=== PATIENT | female | born 1940 | race Caucasian/White ===

== ENCOUNTER 2016-12-25 16:27 | Emergency (ER) | payer MEDICARE, OTHER ==
[~2016-12-25 16:27] MED LIST: CALCIUM600 MG PO; CIPRO DPS500 MG PO; CLARITIN DPS10 MG PO; CLARITIN10 M2 PO; DECADRON-DPS4 MG PO; HYDROCODONE 5MG/5 MG PO; LIPITOR DPS20 MG PO; LOPRESSOR DPS50 MG PO; MAALOX DPS30 ML PO; MEGACE DPS800 MG/20 PO; METAMUCIL0.52 GM PO; MOTRIN IB200 MG PO; ONE DAILY1 EACH PO; PEPCID DPS20 MG PO; RISPERDAL2 MG PO; SURFAK DPS240 MG PO; TYLENOL EXTRA500 M1 OP; VITAMIN D31000 UNIT PO; XARELTO20 MG PO; ZOFRAN4 MG PO; ZOLOFT DPS100 MG PO
--- NOTE | 2016-12-27 16:08 | ER ---
ADMIT: 12/25/2016 RM/LOC: ER [facility] MR#: [id number] [address] [address] [address] [place] [address] Emergency Room Report SEX: F AGE: 76 : 1940 DATE: 12/25/2016 TIME: 1627 hours. Please refer to my T-sheet for complete H and P. HISTORY OF PRESENT ILLNESS: Briefly, the patient is a 76-year-old, who comes in with shortness of breath. She feels like the fluid has rebuilt up in her chest. She has a known history of colon cancer, on chemotherapy. She has had thoracentesis done x2, the last was 2 weeks ago. She denies any fever. No chest pain. She does feel short of breath, worse when she lays flat. PHYSICAL EXAMINATION: VITAL SIGNS: Her blood pressure is 137/73, pulse 125, respirations 32, temp 98.4, saturating 93%. GENERAL: She is in no acute distress. HEENT: Head is atraumatic, normocephalic. Pupils are equal and reactive to light. Extraocular muscles intact. TMs clear. Throat clear. NECK: Soft, supple. LUNGS: Decreased breath sounds on the right. ABDOMEN: Soft. SKIN: No rash. EMERGENCY DEPARTMENT COURSE: We did a CBC. It was normal except white count 12.3, hemoglobin 9.8, which are somewhat stable for her. Chemistries normal except potassium 3.4, BUN 37, glucose 105, creatinine 1.2, mag was 2. Coags are normal. Chest x-ray revealed large right pleural effusion. We gave her a DuoNeb which seemed to help while here. She has them at home. I talked to Dr. Severino, who is on-call for Dr. Jensen. With her oxygen sats being 95%, she is very comfortable. The patient is comfortable with going home and still being on Xarelto today. We would like to hold the Xarelto tonight and tomorrow morning and get the thoracentesis done as an outpatient. The family ADMIT: 12/25/2016 RM/LOC: [facility] MR#: [id number] [address] [address] [address] [facility] [place] [address] Emergency Room Report SEX: F AGE: 76 : 1940 was comfortable with this. The patient was comfortable with this. Dr. Severino was on board with this. We will try to coordinate that with Interventional Radiology. ASSESSMENT: 1. Right pleural effusion reaccumulation. 2. Dyspnea secondary to #1. 3. Oncology patient. PLAN: Hold Xarelto tonight and tomorrow morning. Interventional Radiology will do a thoracentesis tomorrow when available. Return if worse. Follow up with Dr. Jensen. Basim Avalos MD/ bridget JOB #: [id number] CC: Basim Avalos MD, Attending Physician Chelo Cerda MD, Family Physician
[2017-02-15] MEDS ORDERED: LOPERAMIDE2 MG PO (14:00)
[2017-02-15] MEDS ORDERED: LOMOTIL 2.5-0.1 EACH PO (14:02)
[2017-02-15] MEDS ORDERED: CULTURELLE1 CAP PO (14:04)
[2017-02-15] MEDS ORDERED: DUONEB DPS3 ML IH (14:04)
[2017-02-15] MEDS ORDERED: MAALOX DPS30 ML PO (14:04)
[2017-02-15] MEDS ORDERED: COLACE-DPS100 MG PO (14:05)
[2017-02-15] MEDS ORDERED: DURAGESIC1 EAC1 TD (14:05)
[2017-05-04] MEDS ORDERED: MEGACE400 MG/10 PO (13:07)
[2017-05-04] MEDS ORDERED: KLOR-CON M2020 ME1 PO (13:07)
[2017-05-04] MEDS ORDERED: XARELTO20 MG PO (13:07)
[2017-05-04] MEDS ORDERED: DECADRON-DPS4 MG PO (13:08)
[2017-05-04] MEDS ORDERED: OMEPRAZOLE40 MG PO (13:08)
[2017-05-04] MEDS ORDERED: ZOFRAN4 MG PO (13:08)
[2017-05-04] MEDS ORDERED: RISPERDAL2 MG PO (13:08)
[2017-05-04] MEDS ORDERED: ZOLOFT DPS100 MG PO (13:08)
[2017-05-04] MEDS ORDERED: COMPAZINE10 MG PO (13:08)
[2017-05-04] MEDS ORDERED: PROBIOTIC1 EAC1 PO (13:09)
[2017-05-04] MEDS ORDERED: LOMOTIL-DPS1 TAB PO (13:09)
[2017-05-04] MEDS ORDERED: METAMUCIL PACK3.4 GM PO (13:09)
[2017-05-04] MEDS ORDERED: IMODIUM DPS2 MG PO (13:09)
[2017-05-04] MEDS ORDERED: PHENERGAN6.25 MG/5 PO (13:10)
[2017-05-04] MEDS ORDERED: MAALOX DPS30 ML PO (13:11)
[2017-05-04] MEDS ORDERED: K-PHOS ORIGINA500 MG PO (13:12)
[2017-05-04] MEDS ORDERED: CIPRO DPS500 MG PO (13:12)
[2017-05-04] MEDS ORDERED: REGLAN DPS5 MG PO (13:12)
[2017-05-04] MEDS ORDERED: CARAFATE DPS1 GM PO (13:12)
[2017-05-04] MEDS ORDERED: TYLENOL DPS325 MG PO (13:12)
[2017-05-19] MEDS ORDERED: MEGACE DPS800 MG/20 PO (11:59)
[2017-05-19] MEDS ORDERED: KLOR-CON M2020 ME1 PO (11:59)
[2017-05-19] MEDS ORDERED: PROTONIX40 MG PO (11:59)
[2017-05-19] MEDS ORDERED: DECADRON-DPS4 MG PO (11:59)
[2017-05-19] MEDS ORDERED: SERTRALINE HCL100 MG PO (11:59)
[2017-05-19] MEDS ORDERED: XARELTO20 MG PO (11:59)
[2017-05-19] MEDS ORDERED: RISPERDAL2 MG PO (12:00)
[2017-05-19] MEDS ORDERED: COMPAZINE10 MG PO (12:00)
[2017-05-19] MEDS ORDERED: ZOFRAN4 MG PO (12:00)
[2017-05-19] MEDS ORDERED: IMODIUM DPS2 MG PO (12:00)
[2017-05-19] MEDS ORDERED: LOMOTIL-DPS1 TAB PO (12:00)
[2017-05-19] MEDS ORDERED: PHENERGAN25 MG PR (12:01)
[2017-05-19] MEDS ORDERED: CULTURELLE1 CAP PO (12:01)
[2017-05-19] MEDS ORDERED: METAMUCIL SF P3.4 GM PO (12:01)
[2017-05-19] MEDS ORDERED: CARAFATE1 GM/10 ML PO (12:02)
[2017-05-19] MEDS ORDERED: MAALOX DPS30 ML PO (12:02)
[2017-05-19] MEDS ORDERED: REGLAN DPS5 MG PO (12:02)
[2017-05-19] MEDS ORDERED: K-PHOS NEUTRAL250 MG PO (12:02)
[2017-05-19] MEDS ORDERED: TYLENOL DPS325 MG PO (12:03)
[2017-05-19] MEDS ORDERED: CIPRO DPS500 MG PO (12:03)
[2017-07-23] MEDS ORDERED: K-PHOS NEUTRAL250 MG PO (14:26)
[2017-07-23] MEDS ORDERED: FLORINEF0.1 MG PO (14:26)
[2017-07-23] MEDS ORDERED: DELTASONE DPS20 MG PO (14:26)
[2017-07-23] MEDS ORDERED: LASIX DPS40 MG PO (14:27)
[2017-07-23] MEDS ORDERED: PEPCID DPS20 MG PO (14:28)
[2017-07-23] MEDS ORDERED: PRO-AMATINE2.5 MG PO (14:29)
[2017-07-23] MEDS ORDERED: QUESTRAN DPS4 GM PO (14:30)
[2017-07-23] MEDS ORDERED: ZOLOFT50 MG PO (14:32)
[2017-07-23] MEDS ORDERED: DUONEB DPS3 ML IH (14:32)
[2017-07-23] MEDS ORDERED: MUCOMYST 20% IH (14:33)
[2017-07-23] MEDS ORDERED: COLACE-DPS100 MG PO (14:33)
[2017-07-23] MEDS ORDERED: FLU VACCINE IM (14:33)
[2017-07-23] MEDS ORDERED: CLARITIN DPS10 MG PO (14:43)
[2017-07-23] MEDS ORDERED: OCEAN NASAL MIS45 ML NS (14:43)
== END 2016-12-25 18:45 | disposition home or self-care (01) ==
LOC: ER 16:27
DX: J90 Pleural effusion, not elsewhere classified (principal); I10 Essential (primary) hypertension; C18.9 Malignant neoplasm of colon, unspecified; Z79.899 Other long term (current) drug therapy

== ENCOUNTER 2016-12-30 07:55 | Emergency (ER) | payer MEDICARE, OTHER ==
[2017-02-15] MEDS ORDERED: LOPERAMIDE2 MG PO (14:00)
[2017-02-15] MEDS ORDERED: LOMOTIL 2.5-0.1 EACH PO (14:02)
[2017-02-15] MEDS ORDERED: MAALOX DPS30 ML PO (14:04)
[2017-02-15] MEDS ORDERED: DUONEB DPS3 ML IH (14:04)
[2017-02-15] MEDS ORDERED: CULTURELLE1 CAP PO (14:04)
[2017-02-15] MEDS ORDERED: COLACE-DPS100 MG PO (14:05)
[2017-02-15] MEDS ORDERED: DURAGESIC1 EAC1 TD (14:05)
[2017-05-04] MEDS ORDERED: XARELTO20 MG PO (13:07)
[2017-05-04] MEDS ORDERED: KLOR-CON M2020 ME1 PO (13:07)
[2017-05-04] MEDS ORDERED: MEGACE400 MG/10 PO (13:07)
[2017-05-04] MEDS ORDERED: DECADRON-DPS4 MG PO (13:08)
[2017-05-04] MEDS ORDERED: OMEPRAZOLE40 MG PO (13:08)
[2017-05-04] MEDS ORDERED: RISPERDAL2 MG PO (13:08)
[2017-05-04] MEDS ORDERED: ZOFRAN4 MG PO (13:08)
[2017-05-04] MEDS ORDERED: ZOLOFT DPS100 MG PO (13:08)
[2017-05-04] MEDS ORDERED: COMPAZINE10 MG PO (13:08)
[2017-05-04] MEDS ORDERED: METAMUCIL PACK3.4 GM PO (13:09)
[2017-05-04] MEDS ORDERED: PROBIOTIC1 EAC1 PO (13:09)
[2017-05-04] MEDS ORDERED: LOMOTIL-DPS1 TAB PO (13:09)
[2017-05-04] MEDS ORDERED: IMODIUM DPS2 MG PO (13:09)
[2017-05-04] MEDS ORDERED: PHENERGAN6.25 MG/5 PO (13:10)
[2017-05-04] MEDS ORDERED: MAALOX DPS30 ML PO (13:11)
[2017-05-04] MEDS ORDERED: TYLENOL DPS325 MG PO (13:12)
[2017-05-04] MEDS ORDERED: K-PHOS ORIGINA500 MG PO (13:12)
[2017-05-04] MEDS ORDERED: CIPRO DPS500 MG PO (13:12)
[2017-05-04] MEDS ORDERED: REGLAN DPS5 MG PO (13:12)
[2017-05-04] MEDS ORDERED: CARAFATE DPS1 GM PO (13:12)
[2017-05-19] MEDS ORDERED: MEGACE DPS800 MG/20 PO (11:59)
[2017-05-19] MEDS ORDERED: KLOR-CON M2020 ME1 PO (11:59)
[2017-05-19] MEDS ORDERED: DECADRON-DPS4 MG PO (11:59)
[2017-05-19] MEDS ORDERED: SERTRALINE HCL100 MG PO (11:59)
[2017-05-19] MEDS ORDERED: XARELTO20 MG PO (11:59)
[2017-05-19] MEDS ORDERED: PROTONIX40 MG PO (11:59)
[2017-05-19] MEDS ORDERED: LOMOTIL-DPS1 TAB PO (12:00)
[2017-05-19] MEDS ORDERED: COMPAZINE10 MG PO (12:00)
[2017-05-19] MEDS ORDERED: IMODIUM DPS2 MG PO (12:00)
[2017-05-19] MEDS ORDERED: RISPERDAL2 MG PO (12:00)
[2017-05-19] MEDS ORDERED: ZOFRAN4 MG PO (12:00)
[2017-05-19] MEDS ORDERED: METAMUCIL SF P3.4 GM PO (12:01)
[2017-05-19] MEDS ORDERED: CULTURELLE1 CAP PO (12:01)
[2017-05-19] MEDS ORDERED: PHENERGAN25 MG PR (12:01)
[2017-05-19] MEDS ORDERED: REGLAN DPS5 MG PO (12:02)
[2017-05-19] MEDS ORDERED: K-PHOS NEUTRAL250 MG PO (12:02)
[2017-05-19] MEDS ORDERED: MAALOX DPS30 ML PO (12:02)
[2017-05-19] MEDS ORDERED: CARAFATE1 GM/10 ML PO (12:02)
[2017-05-19] MEDS ORDERED: TYLENOL DPS325 MG PO (12:03)
[2017-05-19] MEDS ORDERED: CIPRO DPS500 MG PO (12:03)
[2017-07-23] MEDS ORDERED: K-PHOS NEUTRAL250 MG PO (14:26)
[2017-07-23] MEDS ORDERED: DELTASONE DPS20 MG PO (14:26)
[2017-07-23] MEDS ORDERED: FLORINEF0.1 MG PO (14:26)
[2017-07-23] MEDS ORDERED: LASIX DPS40 MG PO (14:27)
[2017-07-23] MEDS ORDERED: PEPCID DPS20 MG PO (14:28)
[2017-07-23] MEDS ORDERED: PRO-AMATINE2.5 MG PO (14:29)
[2017-07-23] MEDS ORDERED: QUESTRAN DPS4 GM PO (14:30)
[2017-07-23] MEDS ORDERED: ZOLOFT50 MG PO (14:32)
[2017-07-23] MEDS ORDERED: DUONEB DPS3 ML IH (14:32)
[2017-07-23] MEDS ORDERED: COLACE-DPS100 MG PO (14:33)
[2017-07-23] MEDS ORDERED: FLU VACCINE IM (14:33)
[2017-07-23] MEDS ORDERED: MUCOMYST 20% IH (14:33)
[2017-07-23] MEDS ORDERED: CLARITIN DPS10 MG PO (14:43)
[2017-07-23] MEDS ORDERED: OCEAN NASAL MIS45 ML NS (14:43)
== END 2016-12-30 09:45 | disposition home or self-care (01) ==
DX: J90 Pleural effusion, not elsewhere classified (principal); Z85.038 Personal history of other malignant neoplasm of large intestine; Z86.711 Personal history of pulmonary embolism; Z86.718 Personal history of other venous thrombosis and embolism; Z79.899 Other long term (current) drug therapy; Z79.01 Long term (current) use of anticoagulants

== ENCOUNTER 2017-01-01 09:25 | Day surgery (SDC) | payer MEDICARE, OTHER ==
[~2017-01-01] VITALS: Ht 162.6 cm; Wt 85.4 kg
[2017-02-15] MEDS ORDERED: LOPERAMIDE2 MG PO (14:00)
[2017-02-15] MEDS ORDERED: LOMOTIL 2.5-0.1 EACH PO (14:02)
[2017-02-15] MEDS ORDERED: CULTURELLE1 CAP PO (14:04)
[2017-02-15] MEDS ORDERED: MAALOX DPS30 ML PO (14:04)
[2017-02-15] MEDS ORDERED: DUONEB DPS3 ML IH (14:04)
[2017-02-15] MEDS ORDERED: DURAGESIC1 EAC1 TD (14:05)
[2017-02-15] MEDS ORDERED: COLACE-DPS100 MG PO (14:05)
[2017-05-04] MEDS ORDERED: XARELTO20 MG PO (13:07)
[2017-05-04] MEDS ORDERED: MEGACE400 MG/10 PO (13:07)
[2017-05-04] MEDS ORDERED: KLOR-CON M2020 ME1 PO (13:07)
[2017-05-04] MEDS ORDERED: OMEPRAZOLE40 MG PO (13:08)
[2017-05-04] MEDS ORDERED: ZOFRAN4 MG PO (13:08)
[2017-05-04] MEDS ORDERED: DECADRON-DPS4 MG PO (13:08)
[2017-05-04] MEDS ORDERED: COMPAZINE10 MG PO (13:08)
[2017-05-04] MEDS ORDERED: ZOLOFT DPS100 MG PO (13:08)
[2017-05-04] MEDS ORDERED: RISPERDAL2 MG PO (13:08)
[2017-05-04] MEDS ORDERED: LOMOTIL-DPS1 TAB PO (13:09)
[2017-05-04] MEDS ORDERED: METAMUCIL PACK3.4 GM PO (13:09)
[2017-05-04] MEDS ORDERED: PROBIOTIC1 EAC1 PO (13:09)
[2017-05-04] MEDS ORDERED: IMODIUM DPS2 MG PO (13:09)
[2017-05-04] MEDS ORDERED: PHENERGAN6.25 MG/5 PO (13:10)
[2017-05-04] MEDS ORDERED: MAALOX DPS30 ML PO (13:11)
[2017-05-04] MEDS ORDERED: TYLENOL DPS325 MG PO (13:12)
[2017-05-04] MEDS ORDERED: CIPRO DPS500 MG PO (13:12)
[2017-05-04] MEDS ORDERED: CARAFATE DPS1 GM PO (13:12)
[2017-05-04] MEDS ORDERED: K-PHOS ORIGINA500 MG PO (13:12)
[2017-05-04] MEDS ORDERED: REGLAN DPS5 MG PO (13:12)
[2017-05-19] MEDS ORDERED: MEGACE DPS800 MG/20 PO (11:59)
[2017-05-19] MEDS ORDERED: DECADRON-DPS4 MG PO (11:59)
[2017-05-19] MEDS ORDERED: XARELTO20 MG PO (11:59)
[2017-05-19] MEDS ORDERED: PROTONIX40 MG PO (11:59)
[2017-05-19] MEDS ORDERED: SERTRALINE HCL100 MG PO (11:59)
[2017-05-19] MEDS ORDERED: KLOR-CON M2020 ME1 PO (11:59)
[2017-05-19] MEDS ORDERED: RISPERDAL2 MG PO (12:00)
[2017-05-19] MEDS ORDERED: COMPAZINE10 MG PO (12:00)
[2017-05-19] MEDS ORDERED: LOMOTIL-DPS1 TAB PO (12:00)
[2017-05-19] MEDS ORDERED: IMODIUM DPS2 MG PO (12:00)
[2017-05-19] MEDS ORDERED: ZOFRAN4 MG PO (12:00)
[2017-05-19] MEDS ORDERED: CULTURELLE1 CAP PO (12:01)
[2017-05-19] MEDS ORDERED: METAMUCIL SF P3.4 GM PO (12:01)
[2017-05-19] MEDS ORDERED: PHENERGAN25 MG PR (12:01)
[2017-05-19] MEDS ORDERED: MAALOX DPS30 ML PO (12:02)
[2017-05-19] MEDS ORDERED: REGLAN DPS5 MG PO (12:02)
[2017-05-19] MEDS ORDERED: K-PHOS NEUTRAL250 MG PO (12:02)
[2017-05-19] MEDS ORDERED: CARAFATE1 GM/10 ML PO (12:02)
[2017-05-19] MEDS ORDERED: TYLENOL DPS325 MG PO (12:03)
[2017-05-19] MEDS ORDERED: CIPRO DPS500 MG PO (12:03)
[2017-07-23] MEDS ORDERED: DELTASONE DPS20 MG PO (14:26)
[2017-07-23] MEDS ORDERED: FLORINEF0.1 MG PO (14:26)
[2017-07-23] MEDS ORDERED: K-PHOS NEUTRAL250 MG PO (14:26)
[2017-07-23] MEDS ORDERED: LASIX DPS40 MG PO (14:27)
[2017-07-23] MEDS ORDERED: PEPCID DPS20 MG PO (14:28)
[2017-07-23] MEDS ORDERED: PRO-AMATINE2.5 MG PO (14:29)
[2017-07-23] MEDS ORDERED: QUESTRAN DPS4 GM PO (14:30)
[2017-07-23] MEDS ORDERED: DUONEB DPS3 ML IH (14:32)
[2017-07-23] MEDS ORDERED: ZOLOFT50 MG PO (14:32)
[2017-07-23] MEDS ORDERED: FLU VACCINE IM (14:33)
[2017-07-23] MEDS ORDERED: COLACE-DPS100 MG PO (14:33)
[2017-07-23] MEDS ORDERED: MUCOMYST 20% IH (14:33)
[2017-07-23] MEDS ORDERED: CLARITIN DPS10 MG PO (14:43)
[2017-07-23] MEDS ORDERED: OCEAN NASAL MIS45 ML NS (14:43)
== END 2017-01-01 13:55 | disposition home or self-care (01) ==
LOC: RAD.S 09:25 → EDSTATUS 01-03 09:00
PROC: 0W9930Z Drainage of Right Pleural Cavity with Drainage Device, Percutaneous Approach (ICD-10-PCS; principal; 2017-01-01)
DX: J90 Pleural effusion, not elsewhere classified (principal); Z85.038 Personal history of other malignant neoplasm of large intestine; Z90.49 Acquired absence of other specified parts of digestive tract; Z86.718 Personal history of other venous thrombosis and embolism; Z98.890 Other specified postprocedural states

== ENCOUNTER 2017-02-05 14:01 | Inpatient (IN) | payer MEDICARE, OTHER ==
[~2017-02-05] VITALS: Ht 162.6 cm; Wt 91.9 kg
--- NOTE | 2017-02-10 21:52 | ER ---
ADMIT: 02/05/2017 RM/LOC: 520 [facility] MR#: [id number] 2620 [facility] [address] [place] [phone] [address] [place] [address] Emergency Room Report SEX: F AGE: 76 : 1940 DATE: 02/05/2017 CHIEF COMPLAINT: Abdominal pain. HISTORY OF PRESENT ILLNESS: This is a 76-year-old female who was just recently diagnosed with colon cancer. She was over actually at Oncology today for feeling very ill. They sent her over here because her abdomen was distended and very painful with palpation. COURSE IN EMERGENCY ROOM: Sepsis protocol and CT of her abdomen was done. Her CT of abdomen showed abdominal mass and peritonitis. Labs; her CBC, her WBC was 69.8, her hemoglobin is 8.7, platelets 321. Urine showed positive nitrites, 1+ leuks, 9 white blood cells. CMP is normal except for potassium of 3.5. BUN 25, albumin 2.5, alkaline phosphatase is 144. Her CK is low at 19. Her MB and troponin are all normal. Lactic acid is 1.1. PT/INR is 12.5 and 1.2. EKG showed sinus rhythm at a rate of 93. No ST elevation or depression. Dr. Cerda was contacted. She came into the ER to see the patient. CLINICAL IMPRESSION: 1. Peritonitis with abdominal abscess. 2. Colon cancer with probable metastasis to the liver. DISPOSITION: She is stable at admit at this time, 30 mL/kilo of fluids has been given down here. Zosyn has also been started down here in the emergency room. SRAVAN Reza / Dave Thorpe MD / bridget JOB #: [id number] CC: Chelo Cerda MD, Attending Physician Chelo Cerda MD, Family Physician
--- NOTE | 2017-02-12 08:22 | HP ---
ADMIT: 02/05/2017 RM/LOC: 520 [facility] MR#: [id number] [address] [facility] [address] [place] [phone] [address] [place] [address] History and Physical SEX: F AGE: 76 : 1940 DATE OF SERVICE: REASON FOR ADMISSION: Concerns about sepsis. HISTORY OF PRESENT ILLNESS: Ms. Nelson is an elderly white female, who unfortunately has been diagnosed with adenocarcinoma of the colon with significant intra-abdominal peritoneal disease with a pleural effusion. She has a Pleur-evac in place. History of PE's, has an IVC filter in place. She has been cared for by myself as well as in the recent past with Oncology in treatment of her cancer. She was sent to the emergency room yesterday with hypotension, increasing abdominal pain, abdominal discomfort. In the ER, she was found to have a CT scan which showed pulmonary consolidations, ascites, increasing peritoneum inflammatory changes, 2.4 cm loculated fluid collection. Her urine was hazy, positive for nitrates. Her white count was 69,000, hemoglobin 8.7, platelet count 321,000, segs 86, bands 6. Calcitonin 1.13. UA was hazy, positive for nitrates. Blood cultures were pending. Chest x-ray shows right lower lobe opacities, effusion. She does have a history of a Pleur-evac in on that side. She subsequently was admitted for further evaluation, fluid volume resuscitation, cultures, and IV antibiotics. PHYSICAL EXAMINATION: GENERAL: She is alert. ABDOMEN: Rounded, distended, and tender to touch. EXTREMITIES: With 1+ edema. ASSESSMENT: Admission of an elderly white female with metastatic colon cancer, evidence of ascites, increasing inflammatory changes throughout peritoneum with small loculated fluid collection in right lower lobe, right lower abdomen and pelvis. Anemia. Evidence of hypokalemia. Pain management. We will, at this time, admit to [facility] with continued close followup. I will ask Oncology to follow. We will see if Interventional Radiology can review her CT scan and see if it is amendable to abscess drainage. Chelo Cerda MD/ bridget JOB #: [id number] CC: Chelo Cerda, Attending Physician Chelo Cerda, Family Physician
--- NOTE | 2017-02-13 09:51 | CO ---
ADMIT: 02/05/2017 RM/LOC: 628 [facility] MR#: [id number] [address] [address] [address] [place] [address] Consultation SEX: F AGE: 76 : 1940 DATE OF CONSULTATION: 02/06/2017 ATTENDING PHYSICIAN: Chelo Cerda CONSULTING PHYSICIAN: Jennifer Jensen MD REASON FOR HEMATOLOGY/ONCOLOGY CONSULTATION: 1. Stage IV colon cancer, on active chemotherapy. 2. Ascites with significant abdominal pain. HISTORY AND PHYSICAL: Mrs. Nelson is a pleasant woman, 76-year-old, very well known to me, has history of stage IV colon cancer, just recently diagnosed in October of 2016, on active chemotherapy. She is getting modified FOLFOX with Avastin. She just received Avastin in couple of days ago with Neulasta post chemotherapy. The patient was presented in our clinic with significant abdominal tenderness and not feeling very good. Therefore, she was transferred to the ER and a CT scan of the abdomen was done in the ER, and the finding was interval decrease in consolidative opacities and locally the pleural effusions after insertion of right lung drainage catheter, interval increase in inflammatory changes throughout peritoneum, possibly representing peritonitis. Loculated fluid collection on the right side of the pelvis measuring 2.4 cm, difficult to differentiate from adjacent bowel, developing abscess would be consideration, bilateral nephrolithiasis, left hydronephrosis, and ureteral dilatation similar in appearance. Right hepatic 2.6 cm round hypodense mass, nonspecific finding consideration would include infectious process/abscess, although fast growing metastatic lesion cannot be excluded. She was admitted in the hospital for diagnosis of peritonitis. She is placed on antibiotics with Zosyn and vancomycin. There were no any obstructions or perforation signs in CAT scan as we know that Avastin can cause obstruction and GI perforation. I was consulted to see the patient and to talk to her about the Oncology issues and also managed the other Oncology issues. She does have leukocytosis in the blood, which is from Neulasta post chemotherapy. She just recently received that she may have some inflammatory changes on white blood cell count, also from her peritonitis. She denies any nausea. Denies any vomiting, but does have some constipation, had some loose stool a couple of days ago, and complains of severe abdominal pain. She also has some guarding as well as some tenderness on palpations. No fever. She does have low-grade temperature during admissions. PAST MEDICAL HISTORY: Stage IV metastatic colon cancer, on active chemotherapy. MEDICATIONS: She is on Zosyn, vancomycin, and Motrin for the pain control. Please follow medications list for complete list. ALLERGIES: NO KNOWN DRUG ALLERGIES. SOCIAL HISTORY: Currently, she is not a smoker, not a drinker. She denies any IV illicit drug use. ADMIT: 02/05/2017 RM/LOC: 628 [facility] MR#: [id number] [address] [place] [id number] [place] [address] Consultation SEX: F AGE: 76 : 1940 FAMILY HISTORY: History of breast cancer in her sister. History of some high blood pressure in the family. REVIEW OF SYSTEMS: GENERAL: In mild distress due to severe abdominal pain. RESPIRATORY: No shortness of breath. CARDIOVASCULAR: No chest pain. GENITOURINARY: No urgency, no frequency. GASTROINTESTINAL: No nausea, no vomiting, but abdominal pain. No diarrhea. She did have some loose stool in the past. MUSCULOSKELETAL: No pain. NUTRITION: Adequate. INFECTION: Low-grade temperature, but no subsequent fever. SKIN: Rash. EXTREMITIES: No swelling. PHYSICAL EXAMINATION: VITAL SIGNS: Temperature 99.5, pulse 104, respirations 18, blood pressure 104/42. HEENT: Normocephalic and atraumatic. LUNGS: Clear. HEART: S1, S2 heard. Regular rate and rhythm. ABDOMEN: Soft, tender with no guarding. Positive bowel sounds. No CT scan noted. No signs of obstructions or perforations. EXTREMITIES: No edema. NEUROLOGIC: Awake, alert, oriented x3. LYMPHATICS: No abnormal of the palpated. SKIN: No rashes. LABORATORY DATA: WBC 74, hemoglobin is 7.3, platelets 317 with normal kidneys and normal LFTs. CT scan findings were noted. IMPRESSION AND RECOMMENDATIONS: Mrs. Nelson is a 76-year-old, very well known to me for colon cancer, on active treatment, was admitted due to acute peritonitis of her abdomen. 1. Stage IV colon cancer, on active chemotherapy. She did receive modified FOLFOX plus Avastin. CT scan did not show any obstruction nausea or perforation. She does have a pain as acute peritonitis inflammatory on her peritoneum, that could be bacterial. She is on antibiotics Zosyn and vancomycin, which is properly covered even though there are some gut debi, which could have leaked and cause peritonitis. We will get ID consultation. The patient's chemotherapy will be on hold for a while and she needs to get better before we can give her any treatment. Her pain is well controlled with morphine. She will probably benefit from paracentesis or IR-guided aspirations of the possible abscess on the CAT scan. We will get the ID recommendations for that. ADMIT: 02/05/2017 RM/LOC: 628 [facility] MR#: [id number] [address] [place] [phone] [address] [place] [address] Consultation SEX: F AGE: 76 : 1940 2. Leukocytosis from Neulasta and also could be some inflammatory response from the peritonitis but this count should drop down in the future and we will watch it very closely. 3. Anemia from chemotherapy and also could be multifactorial. She has been already scheduled to get a blood transfusion, and I am okay with that. 4. Nutrition is adequate and the patient can eat and drink as normal, and she will be encouraged to move and to do exercise as much as possible. Physical therapy will be on board. I have discussed with the patient and her daughter in detail about the possibility of diagnosis and the management plan for conditions and history of colon cancer, they agreed to the plan. Thank you for your consultation and opportunity in taking care of the patient. Jennifer Jensen MD/ bridget JOB #: [id number] CC: Chelo Cerda, Attending Physician Chelo Cerda, Family Physician
[2017-02-15] MEDS ORDERED: LOPERAMIDE2 MG PO (14:00)
[2017-02-15] MEDS ORDERED: LOMOTIL 2.5-0.1 EACH PO (14:02)
[2017-02-15] MEDS ORDERED: MAALOX DPS30 ML PO (14:04)
[2017-02-15] MEDS ORDERED: CULTURELLE1 CAP PO (14:04)
[2017-02-15] MEDS ORDERED: DUONEB DPS3 ML IH (14:04)
[2017-02-15] MEDS ORDERED: DURAGESIC1 EAC1 TD (14:05)
[2017-02-15] MEDS ORDERED: COLACE-DPS100 MG PO (14:05)
--- NOTE | 2017-02-20 10:56 | CO ---
ADMIT: 02/05/2017 RM/LOC: 520 [facility] MR#: [id number] 2620 [facility] [address] [place] [phone] [address] [place] [address] Consultation SEX: F AGE: 76 : 1940 DATE OF CONSULTATION: 02/06/2017 ATTENDING PHYSICIAN: Chelo Cerda CONSULTING PHYSICIAN: Janis Sauecdo MD REASON FOR CONSULTATION: Possible peritonitis. Thank you, Dr. Cerda, for the consult and involving me in this patient's care. HISTORY OF PRESENT ILLNESS: Ms. Nelson is a 76-year-old woman, who was recently diagnosed with colon cancer in October of 2016 and it is stage IV. She was over at Oncology Clinic and complained of feeling not well. She also complained of severe abdominal pain associated with distention, hence, she was sent to the ER for further evaluation. CT of abdomen and pelvis was done which showed a liver mass, peritonitis, and possible abscess, and her WBC count was 75.8. She was started on vancomycin and Zosyn and her blood cultures have been negative so far. At present, she continues to complain of abdominal pain and denies any nausea or vomiting. Her last chemotherapy was around one week back. PAST MEDICAL HISTORY: 1. Depression. 2. Paranoia. 3. Hyperlipidemia. 4. Stage IV colon cancer. 5. History of E. coli sepsis. 6. Vitamin D deficiency. 7. Midline abdominal incisional dehiscence. 8. History of pulmonary embolus and left lower extremity DVT. 9. Status post IVC filter. 10.Status post right chest PleurX placement. SOCIAL HISTORY: She lives in [place]. Denies any smoking, alcohol, or recreational drug use. She is . ALLERGIES: NO KNOWN DRUG ALLERGIES. CURRENT MEDICATIONS: 1. DuoNeb. 2. Pepcid. 3. Vancomycin 1 g twice daily. 4. Zosyn 3.375 g every 8 hours. FAMILY HISTORY: Significant for breast cancer in her mother and hypertension in her father. REVIEW OF SYSTEMS: A 10-point review of systems negative except as mentioned in HPI. ADMIT: 02/05/2017 RM/LOC: 520 [facility] MR#: [id number] 2620 [facility] [address] [place], [place] [address] [address] [place] [address] Consultation SEX: F AGE: 76 : 1940 PHYSICAL EXAMINATION: VITAL SIGNS: Current temperature 99.2, heart rate 97, respirations 18, blood pressure 112/57, and 92% on 2 L. GENERAL: No acute distress. HEENT: Head, normocephalic and atraumatic. Extraocular movements intact. CHEST: Decreased breath sounds bilaterally, more on the right side. She has a right PleurX drainage catheter. ABDOMEN: Distended. Diffuse tenderness to palpation, more on the right lower quadrant and right upper quadrant. Active bowel sounds. PSYCH: Normal affect. Memory intact. SKIN: No rash noted on exposed skin. DATA REVIEW: Per HPI. CBC today is 74,000, hemoglobin 24.3, and platelets 317. CMP shows low potassium of 3.2, low albumin of 2, and creatinine of 0.9. ASSESSMENT: 1. Questionable abdominal abscess. 2. Peritonitis. 3. Metastatic colon cancer. 4. Abdominal mass, questionable abscess versus metastasis. 5. Hypokalemia. 6. Hypoalbuminemia. 7. Depression. PLAN: We will continue with vancomycin and Zosyn for now. We will get abdominal abscess aspiration by Interventional Radiology. I will also check an MRI of abdomen, liver protocol, as there is a possibility of hepatic abscess versus metastasis. We will also check a peripheral smear. The leukemoid reaction is likely secondary to underlying infection. She also has significant constipation and we will order bowel medications. Thank you for the consult, and I will continue to follow the patient. Janis Saucedo MD/ bridget JOB #: [id number] CC: Chelo Cerda, Attending Physician Chelo Cerda, Family Physician
--- NOTE | 2017-02-21 08:22 | DS ---
ADMIT: 02/05/2017 RM/LOC: 628 [facility] MR#: [id number] 2620 [facility] [address] [place], [place] [address] [address] [place] [address] General Discharge Summary SEX: F AGE: 76 : 1940 ADMISSION DATE: 02/05/2017 DISCHARGE DATE: 02/14/2017 DISCHARGE DIAGNOSES: 1. Peritonitis. 2. Evidence of metastatic colon cancer. 3. Weakness. 4. Malnutrition. 5. Recurrent diarrhea. 6. Urinary tract infection with klebsiella and Enterococcus faecium. HISTORY OF PRESENT ILLNESS: Well documented in her H and P. Her laboratory and radiographic assessment is as followed. On admission, CT scan of her abdomen and pelvis showed interval decrease in consolidation, opacities, and loculated pleural effusion after insertion of right lung drainage catheter, interval increased inflammatory changes throughout the peritoneum. Paracentesis on 02/07/2017 with 250 mL of serous fluid removed. MRI of the abdomen showed a 2.5 cm hepatic mass involving the liver capsule with enhancing features concerning for possible metastasis in the setting of known colon cancer, small ascites, dilated left renal collecting system, unchanged from prior CT and mild thyromegaly and small pleural effusions. Chest x-ray shows right lower lobe opacities and effusion slightly increased since previous exam. Abdominal x-ray shows dilated loops of small bowel confined to her left side of the abdomen. Ultrasound of the abdomen showed ascites, bilateral hydronephrosis, left more than right, surgical absence of gallbladder without evidence of ductal dilatation, the questionable low- density structure demonstrated in the right lobe of the liver on the CT has not demonstrated sonography, this is limited window due to bandage overlying the abdomen. EKG showed sinus rhythm. HOSPITAL COURSE: This very nice 76-year-old white female was admitted to [facility] from Oncology after developing increasing abdominal pain and abdominal discomfort. She was felt to have evidence of possible abscess formation. She has a known past medical history of adenocarcinoma of the colon with significant intraabdominal peritoneal disease, pleural effusion status post placement of Pleur-evac, history of PE ADMIT: 02/05/2017 RM/LOC: 628 [facility] MR#: [id number] 2620 [facility] [address] [place] [phone] [address] [place] [address] General Discharge Summary SEX: F AGE: 76 : 1940 with placement of IVC filter. On admission, her serum sodium was 138, potassium 3.5, BUN and creatinine 25 and 1.0. Phosphorus is 2.7, magnesium 1.9. INR of 1.20. White count of 8.7. Procalcitonin of 1.17. Her CT showed ascites and 2.4 cm loculated fluid collection in size. She was placed on IV antibiotics and vancomycin Dr. Saucedo see and assist in her care as well as Zosyn. She underwent further assessment with MRI peripheral smear. She was followed by myself as well as by Oncology. On 02/06, she continued to have slow but continued improvement and was found to have evidence of urinary tract infection, evidence of possible liver metastatic disease as well as hypokalemia. She was given heparin for DVT prophylaxis and subsequently was being started on her Xarelto. She was subsequently discharged home after receiving full course of antibiotics. Her long-term prognosis is guarded. Chelo Cerda MD/ bridget JOB #: [id number] CC: Chelo Cerda MD, Attending Physician Chelo Cerda MD, Family Physician
[2017-05-04] MEDS ORDERED: XARELTO20 MG PO (13:07)
[2017-05-04] MEDS ORDERED: MEGACE400 MG/10 PO (13:07)
[2017-05-04] MEDS ORDERED: KLOR-CON M2020 ME1 PO (13:07)
[2017-05-04] MEDS ORDERED: COMPAZINE10 MG PO (13:08)
[2017-05-04] MEDS ORDERED: OMEPRAZOLE40 MG PO (13:08)
[2017-05-04] MEDS ORDERED: ZOLOFT DPS100 MG PO (13:08)
[2017-05-04] MEDS ORDERED: DECADRON-DPS4 MG PO (13:08)
[2017-05-04] MEDS ORDERED: RISPERDAL2 MG PO (13:08)
[2017-05-04] MEDS ORDERED: ZOFRAN4 MG PO (13:08)
[2017-05-04] MEDS ORDERED: METAMUCIL PACK3.4 GM PO (13:09)
[2017-05-04] MEDS ORDERED: LOMOTIL-DPS1 TAB PO (13:09)
[2017-05-04] MEDS ORDERED: PROBIOTIC1 EAC1 PO (13:09)
[2017-05-04] MEDS ORDERED: IMODIUM DPS2 MG PO (13:09)
[2017-05-04] MEDS ORDERED: PHENERGAN6.25 MG/5 PO (13:10)
[2017-05-04] MEDS ORDERED: MAALOX DPS30 ML PO (13:11)
[2017-05-04] MEDS ORDERED: K-PHOS ORIGINA500 MG PO (13:12)
[2017-05-04] MEDS ORDERED: TYLENOL DPS325 MG PO (13:12)
[2017-05-04] MEDS ORDERED: CARAFATE DPS1 GM PO (13:12)
[2017-05-04] MEDS ORDERED: CIPRO DPS500 MG PO (13:12)
[2017-05-04] MEDS ORDERED: REGLAN DPS5 MG PO (13:12)
[2017-05-19] MEDS ORDERED: PROTONIX40 MG PO (11:59)
[2017-05-19] MEDS ORDERED: KLOR-CON M2020 ME1 PO (11:59)
[2017-05-19] MEDS ORDERED: SERTRALINE HCL100 MG PO (11:59)
[2017-05-19] MEDS ORDERED: XARELTO20 MG PO (11:59)
[2017-05-19] MEDS ORDERED: DECADRON-DPS4 MG PO (11:59)
[2017-05-19] MEDS ORDERED: MEGACE DPS800 MG/20 PO (11:59)
[2017-05-19] MEDS ORDERED: ZOFRAN4 MG PO (12:00)
[2017-05-19] MEDS ORDERED: RISPERDAL2 MG PO (12:00)
[2017-05-19] MEDS ORDERED: COMPAZINE10 MG PO (12:00)
[2017-05-19] MEDS ORDERED: IMODIUM DPS2 MG PO (12:00)
[2017-05-19] MEDS ORDERED: LOMOTIL-DPS1 TAB PO (12:00)
[2017-05-19] MEDS ORDERED: CULTURELLE1 CAP PO (12:01)
[2017-05-19] MEDS ORDERED: METAMUCIL SF P3.4 GM PO (12:01)
[2017-05-19] MEDS ORDERED: PHENERGAN25 MG PR (12:01)
[2017-05-19] MEDS ORDERED: CARAFATE1 GM/10 ML PO (12:02)
[2017-05-19] MEDS ORDERED: REGLAN DPS5 MG PO (12:02)
[2017-05-19] MEDS ORDERED: K-PHOS NEUTRAL250 MG PO (12:02)
[2017-05-19] MEDS ORDERED: MAALOX DPS30 ML PO (12:02)
[2017-05-19] MEDS ORDERED: TYLENOL DPS325 MG PO (12:03)
[2017-05-19] MEDS ORDERED: CIPRO DPS500 MG PO (12:03)
[2017-07-23] MEDS ORDERED: FLORINEF0.1 MG PO (14:26)
[2017-07-23] MEDS ORDERED: DELTASONE DPS20 MG PO (14:26)
[2017-07-23] MEDS ORDERED: K-PHOS NEUTRAL250 MG PO (14:26)
[2017-07-23] MEDS ORDERED: LASIX DPS40 MG PO (14:27)
[2017-07-23] MEDS ORDERED: PEPCID DPS20 MG PO (14:28)
[2017-07-23] MEDS ORDERED: PRO-AMATINE2.5 MG PO (14:29)
[2017-07-23] MEDS ORDERED: QUESTRAN DPS4 GM PO (14:30)
[2017-07-23] MEDS ORDERED: ZOLOFT50 MG PO (14:32)
[2017-07-23] MEDS ORDERED: DUONEB DPS3 ML IH (14:32)
[2017-07-23] MEDS ORDERED: FLU VACCINE IM (14:33)
[2017-07-23] MEDS ORDERED: COLACE-DPS100 MG PO (14:33)
[2017-07-23] MEDS ORDERED: MUCOMYST 20% IH (14:33)
[2017-07-23] MEDS ORDERED: CLARITIN DPS10 MG PO (14:43)
[2017-07-23] MEDS ORDERED: OCEAN NASAL MIS45 ML NS (14:43)
== END 2017-02-14 19:05 | disposition home health service (06) | DRG 372 ==
LOC: ER 14:01 → 6PED 17:25 → 5MS 17:25 → 6PED 02-08 15:57
PROVIDERS: ADMIT Internal Medicine
PROC: 30233N1 Transfusion of Nonautologous Red Blood Cells into Peripheral Vein, Percutaneous Approach (ICD-10-PCS; principal; 2017-02-06)
PROC: 0W9G3ZX Drainage of Peritoneal Cavity, Percutaneous Approach, Diagnostic (ICD-10-PCS; 2017-02-07)
DX: K65.9 Peritonitis, unspecified (principal); C18.9 Malignant neoplasm of colon, unspecified; K65.1 Peritoneal abscess; E46 Unspecified protein-calorie malnutrition; C78.7 Secondary malignant neoplasm of liver and intrahepatic bile duct; C78.6 Secondary malignant neoplasm of retroperitoneum and peritoneum; R18.8 Other ascites; J98.11 Atelectasis; N39.0 Urinary tract infection, site not specified; I95.9 Hypotension, unspecified; D64.81 Anemia due to antineoplastic chemotherapy; R19.7 Diarrhea, unspecified; T45.1X5A Adverse effect of antineoplastic and immunosuppressive drugs, initial encounter; E88.09 Other disorders of plasma-protein metabolism, not elsewhere classified; E87.6 Hypokalemia; F32.9 Major depressive disorder, single episode, unspecified; F60.0 Paranoid personality disorder; E78.5 Hyperlipidemia, unspecified; Z66 Do not resuscitate; D63.8 Anemia in other chronic diseases classified elsewhere; B96.1 Klebsiella pneumoniae [K. pneumoniae] as the cause of diseases classified elsewhere; B95.2 Enterococcus as the cause of diseases classified elsewhere; Z86.718 Personal history of other venous thrombosis and embolism; Z86.711 Personal history of pulmonary embolism

== ENCOUNTER → 2017-02-23 | Outpatient (CLI) | payer MEDICARE, OTHER ==
[~2017-02-23] MED LIST changes: +CARAFATE DPS1 GM PO; +CARAFATE1 GM/10 ML PO; +COLACE-DPS100 MG PO; +COMPAZINE10 MG PO; +CULTURELLE1 CAP PO; +DELTASONE DPS20 MG PO; +DUONEB DPS3 ML IH; +DURAGESIC1 EAC1 TD; +FLORINEF0.1 MG PO; +FLU VACCINE IM; +IMODIUM DPS2 MG PO; +K-PHOS NEUTRAL250 MG PO; +K-PHOS ORIGINA500 MG PO; +KLOR-CON M2020 ME1 PO; +LASIX DPS40 MG PO; +LOMOTIL 2.5-0.1 EACH PO; +LOMOTIL-DPS1 TAB PO; +LOPERAMIDE2 MG PO; +MEGACE400 MG/10 PO; +METAMUCIL PACK3.4 GM PO; +METAMUCIL SF P3.4 GM PO; +MUCOMYST 20% IH; +OCEAN NASAL MIS45 ML NS; +OMEPRAZOLE40 MG PO; +PHENERGAN25 MG PR; +PHENERGAN6.25 MG/5 PO; +PRO-AMATINE2.5 MG PO; +PROBIOTIC1 EAC1 PO; +PROTONIX40 MG PO; +QUESTRAN DPS4 GM PO; +REGLAN DPS5 MG PO; +SERTRALINE HCL100 MG PO; +TYLENOL DPS325 MG PO; +ZOLOFT50 MG PO
== END | disposition home or self-care (01) ==
LOC: PTH.S 02-21 15:45
DX: R19.7 Diarrhea, unspecified (principal)

== ENCOUNTER 2017-03-24 14:19 | Emergency (ER) | payer MEDICARE, OTHER ==
[~2017-03-24 14:19] MED LIST changes: -CARAFATE DPS1 GM PO; -CARAFATE1 GM/10 ML PO; -COMPAZINE10 MG PO; -DELTASONE DPS20 MG PO; -FLORINEF0.1 MG PO; -FLU VACCINE IM; -IMODIUM DPS2 MG PO; -K-PHOS NEUTRAL250 MG PO; -K-PHOS ORIGINA500 MG PO; -KLOR-CON M2020 ME1 PO; -LASIX DPS40 MG PO; -LOMOTIL-DPS1 TAB PO; -MEGACE400 MG/10 PO; -METAMUCIL PACK3.4 GM PO; -METAMUCIL SF P3.4 GM PO; -MUCOMYST 20% IH; -OCEAN NASAL MIS45 ML NS; -OMEPRAZOLE40 MG PO; -PHENERGAN25 MG PR; -PHENERGAN6.25 MG/5 PO; -PRO-AMATINE2.5 MG PO; -PROBIOTIC1 EAC1 PO; -PROTONIX40 MG PO; -QUESTRAN DPS4 GM PO; -REGLAN DPS5 MG PO; -SERTRALINE HCL100 MG PO; -TYLENOL DPS325 MG PO; -ZOLOFT50 MG PO
--- NOTE | 2017-03-30 17:58 | ER ---
ADMIT: 03/24/2017 RM/LOC: ER [facility] MR#: [id number] 2620 [facility] [address] [place] [phone] [address] [place] [address] Emergency Room Report SEX: F AGE: 76 : 1940 DATE: 03/24/2017 ADDENDUM: A 76-year-old white female coming in just with generalized weakness. She does have what we think metastatic colon cancer. Her lab looks okay; however, her white count is up at 32,000, but that is from the Neulasta she had received. Overall, she is just kind of weak. I did give her a liter of fluid. She is to try and do low volume high calorie. There are no signs of infection. She should follow up with Oncology as needed. CONDITION ON DISCHARGE: Good. Arnulfo Moore MD/ bridget JOB #: [id number] CC: Arnulfo Moore MD, Attending Physician
[2017-05-04] MEDS ORDERED: MEGACE400 MG/10 PO (13:07)
[2017-05-04] MEDS ORDERED: KLOR-CON M2020 ME1 PO (13:07)
[2017-05-04] MEDS ORDERED: XARELTO20 MG PO (13:07)
[2017-05-04] MEDS ORDERED: ZOFRAN4 MG PO (13:08)
[2017-05-04] MEDS ORDERED: RISPERDAL2 MG PO (13:08)
[2017-05-04] MEDS ORDERED: DECADRON-DPS4 MG PO (13:08)
[2017-05-04] MEDS ORDERED: OMEPRAZOLE40 MG PO (13:08)
[2017-05-04] MEDS ORDERED: COMPAZINE10 MG PO (13:08)
[2017-05-04] MEDS ORDERED: ZOLOFT DPS100 MG PO (13:08)
[2017-05-04] MEDS ORDERED: PROBIOTIC1 EAC1 PO (13:09)
[2017-05-04] MEDS ORDERED: METAMUCIL PACK3.4 GM PO (13:09)
[2017-05-04] MEDS ORDERED: LOMOTIL-DPS1 TAB PO (13:09)
[2017-05-04] MEDS ORDERED: IMODIUM DPS2 MG PO (13:09)
[2017-05-04] MEDS ORDERED: PHENERGAN6.25 MG/5 PO (13:10)
[2017-05-04] MEDS ORDERED: MAALOX DPS30 ML PO (13:11)
[2017-05-04] MEDS ORDERED: K-PHOS ORIGINA500 MG PO (13:12)
[2017-05-04] MEDS ORDERED: REGLAN DPS5 MG PO (13:12)
[2017-05-04] MEDS ORDERED: CARAFATE DPS1 GM PO (13:12)
[2017-05-04] MEDS ORDERED: CIPRO DPS500 MG PO (13:12)
[2017-05-04] MEDS ORDERED: TYLENOL DPS325 MG PO (13:12)
[2017-05-19] MEDS ORDERED: XARELTO20 MG PO (11:59)
[2017-05-19] MEDS ORDERED: MEGACE DPS800 MG/20 PO (11:59)
[2017-05-19] MEDS ORDERED: KLOR-CON M2020 ME1 PO (11:59)
[2017-05-19] MEDS ORDERED: SERTRALINE HCL100 MG PO (11:59)
[2017-05-19] MEDS ORDERED: PROTONIX40 MG PO (11:59)
[2017-05-19] MEDS ORDERED: DECADRON-DPS4 MG PO (11:59)
[2017-05-19] MEDS ORDERED: LOMOTIL-DPS1 TAB PO (12:00)
[2017-05-19] MEDS ORDERED: IMODIUM DPS2 MG PO (12:00)
[2017-05-19] MEDS ORDERED: COMPAZINE10 MG PO (12:00)
[2017-05-19] MEDS ORDERED: ZOFRAN4 MG PO (12:00)
[2017-05-19] MEDS ORDERED: RISPERDAL2 MG PO (12:00)
[2017-05-19] MEDS ORDERED: METAMUCIL SF P3.4 GM PO (12:01)
[2017-05-19] MEDS ORDERED: PHENERGAN25 MG PR (12:01)
[2017-05-19] MEDS ORDERED: CULTURELLE1 CAP PO (12:01)
[2017-05-19] MEDS ORDERED: REGLAN DPS5 MG PO (12:02)
[2017-05-19] MEDS ORDERED: MAALOX DPS30 ML PO (12:02)
[2017-05-19] MEDS ORDERED: CARAFATE1 GM/10 ML PO (12:02)
[2017-05-19] MEDS ORDERED: K-PHOS NEUTRAL250 MG PO (12:02)
[2017-05-19] MEDS ORDERED: TYLENOL DPS325 MG PO (12:03)
[2017-05-19] MEDS ORDERED: CIPRO DPS500 MG PO (12:03)
[2017-07-23] MEDS ORDERED: K-PHOS NEUTRAL250 MG PO (14:26)
[2017-07-23] MEDS ORDERED: FLORINEF0.1 MG PO (14:26)
[2017-07-23] MEDS ORDERED: DELTASONE DPS20 MG PO (14:26)
[2017-07-23] MEDS ORDERED: LASIX DPS40 MG PO (14:27)
[2017-07-23] MEDS ORDERED: PEPCID DPS20 MG PO (14:28)
[2017-07-23] MEDS ORDERED: PRO-AMATINE2.5 MG PO (14:29)
[2017-07-23] MEDS ORDERED: QUESTRAN DPS4 GM PO (14:30)
[2017-07-23] MEDS ORDERED: ZOLOFT50 MG PO (14:32)
[2017-07-23] MEDS ORDERED: DUONEB DPS3 ML IH (14:32)
[2017-07-23] MEDS ORDERED: MUCOMYST 20% IH (14:33)
[2017-07-23] MEDS ORDERED: FLU VACCINE IM (14:33)
[2017-07-23] MEDS ORDERED: COLACE-DPS100 MG PO (14:33)
[2017-07-23] MEDS ORDERED: OCEAN NASAL MIS45 ML NS (14:43)
[2017-07-23] MEDS ORDERED: CLARITIN DPS10 MG PO (14:43)
== END 2017-03-24 17:42 | disposition home or self-care (01) ==
LOC: ER 14:19
DX: R53.1 Weakness (principal); C18.9 Malignant neoplasm of colon, unspecified; F32.9 Major depressive disorder, single episode, unspecified; Z79.899 Other long term (current) drug therapy

== ENCOUNTER → 2017-04-12 | Outpatient (CLI) | payer MEDICARE, OTHER ==
[~2017-04-12] MED LIST changes: +CARAFATE DPS1 GM PO; +CARAFATE1 GM/10 ML PO; +COMPAZINE10 MG PO; +DELTASONE DPS20 MG PO; +FLORINEF0.1 MG PO; +FLU VACCINE IM; +IMODIUM DPS2 MG PO; +K-PHOS NEUTRAL250 MG PO; +K-PHOS ORIGINA500 MG PO; +KLOR-CON M2020 ME1 PO; +LASIX DPS40 MG PO; +LOMOTIL-DPS1 TAB PO; +MEGACE400 MG/10 PO; +METAMUCIL PACK3.4 GM PO; +METAMUCIL SF P3.4 GM PO; +MUCOMYST 20% IH; +OCEAN NASAL MIS45 ML NS; +OMEPRAZOLE40 MG PO; +PHENERGAN25 MG PR; +PHENERGAN6.25 MG/5 PO; +PRO-AMATINE2.5 MG PO; +PROBIOTIC1 EAC1 PO; +PROTONIX40 MG PO; +QUESTRAN DPS4 GM PO; +REGLAN DPS5 MG PO; +SERTRALINE HCL100 MG PO; +TYLENOL DPS325 MG PO; +ZOLOFT50 MG PO
== END | disposition home or self-care (01) ==
LOC: EDSTATUS 04-10 08:00 → RAD.S 04-10 08:00
PROC: 0WP933Z Removal of Infusion Device from Right Pleural Cavity, Percutaneous Approach (ICD-10-PCS; principal; 2017-04-12)
DX: Z46.82 Encounter for fitting and adjustment of non-vascular catheter (principal); J90 Pleural effusion, not elsewhere classified; C18.9 Malignant neoplasm of colon, unspecified

== ENCOUNTER → 2017-04-15 | Outpatient (CLI) | payer MEDICARE, OTHER | END | disposition home or self-care (01) | LOC: RAD.S 09:28 | DX: J90 Pleural effusion, not elsewhere classified (principal); R06.02 Shortness of breath; C18.9 Malignant neoplasm of colon, unspecified; J98.11 Atelectasis ==